=== PATIENT | female | born 1995 | race Two or more races ===

== ENCOUNTER 2017-02-14 17:39 | Emergency (ER) | payer OTHER ==
[2017-02-14 18:52] LABS: ABSOLUTE NEUTROPHIL COUNT 7.2 K/mm3 (1.8-7.7); BASO % 0.4 % (0.2-1.0); EOS % 0.3 % (0.9-2.9); HEMATOCRIT 38.8 % (37.0-47.0); HEMOGLOBIN 12.8 gm/l (12.0-16.0); IMM NEUT% 0.3 % (0-1); LYMPH # 3.4 (1.0-4.8); LYMPH % 30.9 % (15-45); MEAN CORPUSCULAR HEMOGLOBIN 29.4 pg (27.0-31.0); MONO # 0.4 (0.0-0.8); MONO % 3.9 % (4-12); NEUT % 64.2 % (43-75); PLATELET COUNT 411 K/mm3 (130-400); RED CELL DISTRIBUTION WIDTH 13.1 % (11.5-14.5)
--- NOTE | 2017-02-14 21:01 | US ---
Name: ONUR KELLY Exam: Obstetrical Ultrasound Comparison: None Clinical history: Vaginal bleeding. Gestation should be 8 weeks 2 days Findings: Transabdominal and endovaginal imaging of the pelvis was performed. Visualized bladder is normal. Uterus is normal size. There are couple subcentimeter nabothian cyst. There is an intrauterine gestation at approximately 4 weeks 5 days by mean sac diameter suggesting an estimated date of delivery of 10/19/2017. Yolk sac is larger than normally seen. pole is not yet identified. There is no perigestational hemorrhage. Placenta is not identified. There is no free fluid. Right ovary is 1.5 cm and left ovary is 2.5 cm in greatest dimension and there is blood flow in both ovaries. There is no suspicious adnexal mass or fluid collection. Impression: 1. Single intrauterine gestation at 4 weeks 5 days by mean sac diameter suggesting an estimated date of delivery of 10/19/2017 2. Yolk sac is larger than typically seen. Continued follow up with serial beta hCG and/or ultrasound is recommended 3. No free fluid 4. Normal appearance of the adnexa Note: The above report was uploaded to [facility]'s electronic medical records system at 2056 hours.
== END 2017-02-14 21:44 | disposition home or self-care (01) ==
LOC: ED 17:39
DX: O20.0 Threatened abortion (principal); Z3A.08 8 weeks gestation of pregnancy